=== PATIENT | female | born 2000 | race Hispanic/Latino ===

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

== ENCOUNTER 2019-01-06 22:18 | Emergency (ER) | payer MEDICAID ==
--- NOTE | 2019-01-06 22:25 | Event Note ---
ED Screening Note Date of service: 01/06/19 Time: 22:24 ED Screening Note: 18 y/o female comes in for left ankle injury this evening. LMP 12/26/18. Pain 12/23. This initial assessment/diagnostic orders/clinical plan/treatment(s) is/are subject to change based on patients health status, clinical progression and re- assessment by fellow clinical providers in the ED. Further treatment and workup at subsequent clinical providers discretion. Patient/guardian urged not to elope from the ED as their condition may be serious if not clinically assessed and managed. Initial orders include:
[2019-01-06] MEDS ORDERED: MARCAINE 0.25% INFILTRATI ONE ×2 (22:53→22:59)
[2019-01-06] MEDS ORDERED: NORCO 5/325 PO ONE (22:54)
--- NOTE | 2019-01-06 23:03 | Emergency Department Report ---
ED Lower Extremity HPI - General Chief Complaint: Extremity Injury, Lower Stated Complaint: LT ANKLE PAIN Time Seen by Provider: 01/06/19 22:21 Source: patient Mode of arrival: Ambulatory Limitations: No Limitations - History of Present Illness Initial Comments: pt is a 18-year-old white female presents for left ankle pain and deformity status post states she was walking on concrete H slipped and fell twisting her left ankle now with pain in the family unable to bear weight there is tingling and numbness 7/10 exacerbated by movement attempted weight bearing relieved by off lorenzo with the MD Complaint: leg injury Onset/Timin -: hour(s) Injury: Ankle: Left (L) Place: street/outdoors Severity: moderate Severity scale (0 -10): 5 Improves With: nothing Worsens With: weight bearing, movement (female is usually so place), palpation Context: fall Associated Symptoms: snap/pop sensation, swelling, numbness, tingling, unable to bear weight - Related Data Previous Rx's Medication Instructions Recorded Last Taken Type DOXYCYCLINE Hyclate [Vibramycin 100 mg PO Q12HR #20 capsule 12/15/18 Unknown Rx CAP] Naproxen [Naprosyn] 500 mg PO Q12H #20 tablet 12/15/18 Unknown Rx Ondansetron [Zofran Odt] 4 mg PO Q8HR #15 tab.rapdis 12/15/18 Unknown Rx metroNIDAZOLE [Flagyl] 500 mg PO Q12HR #20 tab 12/15/18 Unknown Rx traMADol [Ultram] 50 mg PO Q6HR PRN #12 tablet 12/15/18 Unknown Rx HYDROcodone/APAP 5-325 [[place] 1 each PO Q6HR PRN #12 tablet 01/06/19 Unknown Rx 5-325 mg TAB] Allergies Allergy/AdvReac Type Severity Reaction Status Date / Time No Known Allergies Allergy Verified 12/15/18 05:13 ED Review of Systems ROS: Stated complaint: LT ANKLE PAIN Other details as noted in HPI Constitutional: denies: chills, fever Eyes: denies: eye pain, eye discharge, vision change ENT: denies: ear pain, throat pain Respiratory: denies: cough, shortness of breath, wheezing Cardiovascular: denies: chest pain, palpitations Endocrine: no symptoms reported Gastrointestinal: denies: abdominal pain, nausea, diarrhea Genitourinary: denies: urgency, dysuria, discharge Musculoskeletal: joint swelling, myalgia, other (left lateral ankle pain swelling ). denies: back pain, arthralgia Skin: denies: rash, lesions Neurological: denies: headache, weakness, numbness, paresthesias, confusion, abnormal gait, vertigo Psychiatric: denies: anxiety, depression Hematological/Lymphatic: denies: easy bleeding, easy bruising ED Past Medical Hx - Past Medical History Previous Medical History?: No - Surgical History Past Surgical History?: Yes Additional Surgical History: [place] tooth - Social History Smoking Status: Current Every Day Smoker Substance Use Type: None - Medications Home Medications: Home Medications Medication Instructions Recorded Confirmed Last Taken Type DOXYCYCLINE Hyclate [Vibramycin 100 mg PO Q12HR #20 capsule 12/15/18 Unknown Rx CAP] Naproxen [Naprosyn] 500 mg PO Q12H #20 tablet 12/15/18 Unknown Rx Ondansetron [Zofran Odt] 4 mg PO Q8HR #15 tab.rapdis 12/15/18 Unknown Rx metroNIDAZOLE [Flagyl] 500 mg PO Q12HR #20 tab 12/15/18 Unknown Rx traMADol [Ultram] 50 mg PO Q6HR PRN #12 tablet 12/15/18 Unknown Rx HYDROcodone/APAP 5-325 [[place] 1 each PO Q6HR PRN #12 tablet 01/06/19 Unknown Rx 5-325 mg TAB] ED Physical Exam - General Limitations: No Limitations General appearance: alert, in no apparent distress - Head Head exam: Present: atraumatic, normocephalic - Eye Eye exam: Present: normal appearance, PERRL, EOMI Pupils: Present: normal accommodation - ENT ENT exam: Present: normal orophraynx, mucous membranes moist, TM's normal bilaterally, normal external ear exam - Neck Neck exam: Present: normal inspection, full ROM. Absent: tenderness, lymphadenopathy, thyromegaly - Respiratory Respiratory exam: Present: normal lung sounds bilaterally. Absent: respiratory distress, wheezes, stridor, chest wall tenderness - Cardiovascular Cardiovascular Exam: Present: regular rate, normal rhythm, normal heart sounds. Absent: systolic murmur, diastolic murmur, rubs, gallop - GI/Abdominal GI/Abdominal exam: Present: soft, normal bowel sounds. Absent: distended, tenderness, bruit, hernia - Rectal Rectal exam: Present: deferred - Extremities Exam Extremities exam: Present: tenderness, normal capillary refill, joint swelling. Absent: pedal edema, calf tenderness - Expanded Lower Extremity Exam Left Ankle exam: Present: tenderness, swelling, deformity. Absent: anterior draw sign Foot/Toe exam: Present: full ROM. Absent: tenderness, swelling Neuro vascular tendon exam: Absent: pulse deficit, motor deficit, sensory deficit, tendon deficit, foot drop Gait: Positive: unable to bear weight - Back Exam Back exam: Present: normal inspection, full ROM. Absent: tenderness, CVA tenderness (R), CVA tenderness (L), muscle spasm, paraspinal tenderness, vertebral tenderness, rash noted - Neurological Exam Neurological exam: Present: alert, oriented X3, CN II-XII intact, normal gait. Absent: motor sensory deficit, reflexes normal - Psychiatric Psychiatric exam: Present: normal affect, normal mood ED Course Vital Signs 01/06/19 01/06/19 22:23 23:35 Temperature 98.2 F Pulse Rate 89 66 Respiratory 18 20 Rate Blood Pressure 116/70 Blood Pressure 119/67 [Right] O2 Sat by Pulse 98 100 Oximetry - Procedure Description Procedures done: left ankle nerve block via marcain .25% per ed attending, ankle manually reduced sean short leg splint placed distal pulses intact rom improved pt tolerated procedure with minmal distress. ED Lower Extremity MDM - Radiology Data Radiology results: report reviewed, image reviewed Ordering Physician: PORSCHE BECKHAM Date of Service: 01/06/19 Procedure(s): XR ankle 3+V LT Accession Number(s): [id number] cc: PORSCHE BECKHAM Fluoro Time In Minutes: LEFT ANKLE 3 VIEWS INDICATION / CLINICAL INFORMATION: Left ankle injury. COMPARISON: None available. FINDINGS: BONES and JOINT(S): No acute fracture or subluxation. No significant arthritis. SOFT TISSUES: Moderate edema is seen anteriorly and laterally. ADDITIONAL FINDINGS: None. IMPRESSION: Moderate left ankle edema without an acute osseous abnormality. Signer Name: Thom Braswell MD Signed: 01/06/2019 10:57 PM Workstation Name: [id number] Transcribed By: [place] Dictated By: Thom Braswell MD Electronically Authenticated By: Thom Braswell MD Signed Date/Time: 01/06/19 8167 DD/ 56 TD/TT: - Medical Decision Making deformity reduced , splint applied , distal pulses intact rom improved, pt will follow up with orthopedics in 2 days , pt demonstrates safe use of crutches pt verbalized agreement and understanding of discharge plan. pt dc'd to home in stable condition at this time. Critical care attestation.: If time is entered above; I have spent that time in minutes in the direct care of this critically ill patient, excluding procedure time. ED Disposition Clinical Impression: Ankle sprain Qualifiers: Encounter type: initial encounter Involved ligament of ankle: unspecified ligament Laterality: left Qualified Code(s): S93.402A - Sprain of unspecified ligament of left ankle, initial encounter Disposition: DC- TO HOME OR SELFCARE Is pt being admited?: No Does the pt Need Aspirin: No Condition: Stable Instructions: Ankle Sprain (ED), Ankle Exercises (GEN) Prescriptions: HYDROcodone/APAP 5-325 [[place] 5-325 mg TAB] 1 each PO Q6HR PRN #12 tablet PRN Reason: Pain Referrals: CHATA ENGLAND MD [Staff Physician] - 3-5 Days Forms: Work/School Release Form(ED) Time of Disposition: 23:50
--- NOTE | 2019-01-06 23:25 | Event Note ---
Date of service: 01/06/19 Face to Face: For this encounter I have reviewed the PA/BROOMCORN SEEDER documentation, treatment plan, medical decision making, and I had face to face time with this patient. Clinically the patient has a dislocated left ankle. Ankle is rotated inward with a great deal of swelling at the lateral malleolus. After performing a Seral ankle block patient did have good anesthesia. Ankle was relocated manually and the patient had improved function with moving her toes and had improved range of motion to the ankle. Splint was applied by myself and Mr. Staley.
[2019-01-06 23:36] VITALS: BP 119/67
== END 2019-01-07 00:04 | disposition home or self-care (01) ==
LOC: ED 22:18
DX: S93.402A Sprain of unspecified ligament of left ankle, initial encounter (principal); F17.200 Nicotine dependence, unspecified, uncomplicated; W01.0XXA Fall on same level from slipping, tripping and stumbling without subsequent striking against object, initial encounter; Y93.89 Activity, other specified; Y92.89 Other specified places as the place of occurrence of the external cause; Y99.8 Other external cause status

== ENCOUNTER 2019-03-04 14:38 | Emergency (ER) | payer MEDICAID ==
--- NOTE | 2019-03-04 14:51 | Event Note ---
ED Screening Note Date of service: 03/04/19 Time: 14:47 ED Screening Note: This is a 18 y.o. F. that presents to the ER with weakness for 2 days. Patient states she took ecstasy Sharan night and sick every since. Reports 4 unwitnessed syncopal episodes without injury. This initial assessment/diagnostic orders/clinical plan/treatment(s) is/are subject to change based on patients health status, clinical progression and re- assessment by fellow clinical providers in the ED. Further treatment and workup at subsequent clinical providers discretion. Patient/guardian urged not to elope from the ED as their condition may be serious if not clinically assessed and managed. Initial orders include: Labs
[2019-03-04 15:18] LABS: Basophils % (Auto) 0.4 % (0.0-1.8); Eosinophils % (Auto) 0.3 % (0.0-4.3); Hematocrit 38.8 % (30.3-42.9); Hemoglobin 13.3 gm/dl (10.1-14.3); Lymphocytes # (Auto) 1.5 K/mm3 (1.2-5.4); Lymphocytes % (Auto) 16.8 % (13.4-35.0); Mean Corpuscular HGB Conc 34 % (30-34); Mean Corpuscular Volume 86 fl (79-97); Monocytes # (Auto) 0.6 K/mm3 (0.0-0.8); Monocytes % (Auto) 7.1 % (0.0-7.3); Platelet Count 388 K/mm3 (140-440); Red Blood Count 4.54 M/mm3 (3.65-5.03); Red Cell Distribution Width 12.8 % (13.2-15.2)
[2019-03-04 15:20] LABS: Bilirubin,Urine NEG (Negative); Blood,Urine SM (Negative); Color,Urine Yellow (Yellow); Mucus,Urine FEW /HPF; Protein,Urine <15 mg/dL mg/dL (Negative); Urobilinogen,Urine < 2.0 mg/dL (<2.0)
[2019-03-04 15:36] LABS: HCG Qualitative,Urine Negative (Negative)
[2019-03-04 15:41] LABS: Alanine Aminotransferase 18 units/L (7-56); Albumin 4.6 g/dL (3.9-5); BUN/Creatinine Ratio 12; Blood Urea Nitrogen 7 mg/dL (7-17); Calcium 9.2 mg/dL (8.4-10.2); Hemolysis Index 6
[2019-03-04] MEDS ORDERED: NACL 0.9% 1000 ML 1,000 ML IV ONE ×3 (16:45→17:56)
[2019-03-04 17:00] LABS: Amphetamine Screen,Urine PRESUMPTIVE POSITIVE; Cannabinoid Screen,Urine PRESUMPTIVE POSITIVE
[2019-03-04 17:01] LABS: Benzodiazepines Screen,Urine PRESUMPTIVE NEGATIVE; Cocaine Screen,Urine PRESUMPTIVE NEGATIVE; Methadone Screen,Urine PRESUMPTIVE NEGATIVE; Opiate Screen,Urine PRESUMPTIVE NEGATIVE
--- NOTE | 2019-03-04 18:02 | Emergency Department Report ---
ED Syncope HPI - General Chief Complaint: Syncope Stated Complaint: FAINTED Time Seen by Provider: 03/04/19 14:46 Source: patient, family Exam Limitations: no limitations - History of Present Illness Initial Comments: Yumiko is a 18 yo female who presents with weakness and fainting episode for the past 2 days. ON Tuesday, she took Ectasy. On Tuesday, she fainted 4 times. No indication of seizure activity. She denies chest pain. She denies shortness of breath. Timing/Prior Episodes: other (multiple episodes on yesterday) Precipitating Factors: Positive: none Context: other (recent drug use) Loss of Consciousness: brief (seconds) Current Symptoms: back to normal - Related Data Allergies/Adverse Reactions: Allergies No Known Allergies Allergy (Verified 12/15/18 05:13) Home Medications: Ambulatory Orders DOXYCYCLINE Hyclate [Vibramycin CAP] 100 mg PO Q12HR #20 capsule 12/15/18 Naproxen [Naprosyn] 500 mg PO Q12H #20 tablet 12/15/18 Ondansetron [Zofran Odt] 4 mg PO Q8HR #15 tab.rapdis 12/15/18 metroNIDAZOLE [Flagyl] 500 mg PO Q12HR #20 tab 12/15/18 traMADol [Ultram] 50 mg PO Q6HR PRN #12 tablet 12/15/18 HYDROcodone/APAP 5-325 [[place] 5-325 mg TAB] 1 each PO Q6HR PRN #12 tablet 01/06/19 ED Review of Systems ROS: Stated complaint: FAINTED Other details as noted in HPI Comment: All other systems reviewed and negative Constitutional: malaise. denies: chills, fever Cardiovascular: denies: chest pain Gastrointestinal: denies: abdominal pain, nausea, vomiting Skin: denies: rash, lesions ED Past Medical Hx - Past Medical History Previous Medical History?: No - Surgical History Past Surgical History?: Yes Additional Surgical History: [place] tooth - Social History Smoking Status: Never Smoker Substance Use Type: None - Medications Home Medications: Home Medications Medication Instructions Recorded Confirmed Last Taken Type DOXYCYCLINE Hyclate [Vibramycin 100 mg PO Q12HR #20 capsule 12/15/18 Unknown Rx CAP] Naproxen [Naprosyn] 500 mg PO Q12H #20 tablet 12/15/18 Unknown Rx Ondansetron [Zofran Odt] 4 mg PO Q8HR #15 tab.rapdis 12/15/18 Unknown Rx metroNIDAZOLE [Flagyl] 500 mg PO Q12HR #20 tab 12/15/18 Unknown Rx traMADol [Ultram] 50 mg PO Q6HR PRN #12 tablet 12/15/18 Unknown Rx HYDROcodone/APAP 5-325 [[place] 1 each PO Q6HR PRN #12 tablet 01/06/19 Unknown Rx 5-325 mg TAB] ED Physical Exam - General Limitations: No Limitations General appearance: alert, in no apparent distress - Head Head exam: Present: atraumatic, normocephalic - Eye Eye exam: Present: normal appearance - ENT ENT exam: Present: mucous membranes moist - Neck Neck exam: Present: normal inspection, full ROM - Respiratory Respiratory exam: Present: normal lung sounds bilaterally. Absent: respiratory distress, wheezes, rales, rhonchi - Cardiovascular Cardiovascular Exam: Present: regular rate, normal rhythm, normal heart sounds. Absent: systolic murmur, diastolic murmur, rubs, gallop - GI/Abdominal GI/Abdominal exam: Present: soft, normal bowel sounds. Absent: distended, tenderness, guarding, rebound - Extremities Exam Extremities exam: Present: normal inspection - Back Exam Back exam: Present: normal inspection - Neurological Exam Neurological exam: Present: alert, oriented X3 - Psychiatric Psychiatric exam: Present: normal affect, normal mood - Skin Skin exam: Present: warm, dry, intact, normal color. Absent: rash ED Course Vital Signs 03/04/19 03/04/19 03/04/19 14:44 17:23 17:30 Temperature 98 F Pulse Rate 95 H Respiratory 18 Rate Blood Pressure 128/98 143/89 O2 Sat by Pulse 100 100 100 Oximetry 03/04/19 03/04/19 18:01 18:31 Temperature Pulse Rate 83 81 Respiratory 24 14 Rate Blood Pressure 129/75 125/73 O2 Sat by Pulse 100 100 Oximetry ED Medical Decision Making - Lab Data Result diagrams: 03/04/19 14:58 03/04/19 14:58 Laboratory Results - last 24 hr 03/04/19 03/04/19 03/04/19 14:58 14:58 16:05 WBC 9.0 RBC 4.54 Hgb 13.3 Hct 38.8 MCV 86 MCH 29 MCHC 34 RDW 12.8 L Plt Count 388 Lymph % (Auto) 16.8 [place] % (Auto) 7.1 Eos % (Auto) 0.3 Baso % (Auto) 0.4 Lymph # 1.5 [place] # 0.6 Eos # 0.0 Baso # 0.0 Seg Neutrophils % 75.4 H Seg Neutrophils # 6.8 Sodium 141 Potassium 3.4 L Chloride 102.1 Carbon Dioxide 23 Anion Gap 19 BUN 7 Creatinine 0.6 L Estimated GFR > 60 BUN/Creatinine Ratio 12 Glucose 88 Calcium 9.2 Total Bilirubin 0.30 AST 24 ALT 18 Alkaline Phosphatase 51 Total Protein 8.2 Albumin 4.6 Albumin/Globulin Ratio 1.3 Urine Color Urine Turbidity Urine pH Ur Specific [place] Urine Protein Urine Glucose (UA) Urine Ketones Urine Blood Urine Nitrite Urine Bilirubin Urine Urobilinogen Ur Leukocyte Esterase Urine WBC (Auto) Urine RBC (Auto) U Epithel Cells (Auto) Urine Mucus Urine HCG, Qual Urine Opiates Screen Presumptive negative Urine Methadone Screen Presumptive negative Ur Barbiturates Screen Presumptive negative Ur Phencyclidine Scrn Presumptive negative Ur Amphetamines Screen Presumptive positive U Benzodiazepines Scrn Presumptive negative Urine Cocaine Screen Presumptive negative U Marijuana (THC) Screen Presumptive positive Drugs of Abuse Note Disclamer 03/04/19 Unknown WBC RBC Hgb Hct MCV MCH MCHC RDW Plt Count Lymph % (Auto) [place] % (Auto) Eos % (Auto) Baso % (Auto) Lymph # [place] # Eos # Baso # Seg Neutrophils % Seg Neutrophils # Sodium Potassium Chloride Carbon Dioxide Anion Gap BUN Creatinine Estimated GFR BUN/Creatinine Ratio Glucose Calcium Total Bilirubin AST ALT Alkaline Phosphatase Total Protein Albumin Albumin/Globulin Ratio Urine Color Yellow Urine Turbidity Clear Urine pH 7.0 Ur Specific [place] 1.010 Urine Protein <15 mg/dl Urine Glucose (UA) Neg Urine Ketones Neg Urine Blood Sm Urine Nitrite Neg Urine Bilirubin Neg Urine Urobilinogen < 2.0 Ur Leukocyte Esterase Tr Urine WBC (Auto) 1.0 Urine RBC (Auto) 2.0 U Epithel Cells (Auto) < 1.0 Urine Mucus Few Urine HCG, Qual Negative Urine Opiates Screen Urine Methadone Screen Ur Barbiturates Screen Ur Phencyclidine Scrn Ur Amphetamines Screen U Benzodiazepines Scrn Urine Cocaine Screen U Marijuana (THC) Screen Drugs of Abuse Note - EKG Data EKG shows normal: sinus rhythm, axis, intervals, QRS complexes, ST-T waves Rate: normal - Medical Decision Making Recurrent syncope with severe orthostasis: IVF provided, VTE/PE ruled out with normal d-dimer. Normal EKG, negative . labs WNL Has been monitored in the ED for 4 hours without arrhythmia detected on monitor. Discharged home with normal vital signs upon discharge. UDS positive for amphetamine and marijuana Critical care attestation.: If time is entered above; I have spent that time in minutes in the direct care of this critically ill patient, excluding procedure time. ED Disposition Clinical Impression: Recurrent syncope, Orthostatic hypotension, Dehydration, Drug abuse Disposition: DC-01 TO HOME OR SELFCARE Is pt being admited?: No Does the pt Need Aspirin: No Condition: Stable Instructions: Syncope (ED), Dehydration (ED), Polysubstance Abuse (ED) Referrals: [facility] [Outside] - 3-5 Days
[2019-03-04 19:49] VITALS: BP 148/121
== END 2019-03-04 19:40 | disposition home or self-care (01) ==
LOC: ED 14:38
DX: E86.0 Dehydration (principal); R55 Syncope and collapse; Z79.899 Other long term (current) drug therapy
CPT/HCPCS: 36415; 80053; 80307; 81001; 81025; 85025; 85379; 93005; 93010; 96360; 96361; 99284; J7030

== ENCOUNTER 2019-04-11 07:33 | Emergency (ER) | payer MEDICAID ==
--- NOTE | 2019-04-11 08:54 | Emergency Department Report ---
ED Headache HPI - General Chief Complaint: Headache Stated Complaint: BAD HEADACHES/FAINTING Time Seen by Provider: 04/11/19 08:06 Source: patient, old records Exam Limitations: no limitations - History of Present Illness Initial Comments: 18 yo comes to ER with a 1 month hx of worsening headache. VSS. no fever. no meningeal signs. no htn. no difficulty with vision or balance. no hx of trauma. She is non ill appearing and ambulatory to ER She reports a syncope event 1 m ago- she did not follow up. Today she comes to due to headache. Has taken OTC meds but they do not help Timing/Duration: increasing, other Quality: throbbing Head Injury Location: global Recent Head Trauma: no recent headache/trauma, frequent headaches Associated Symptoms: denies symptoms Allergies/Adverse Reactions: Allergies No Known Allergies Allergy (Verified 12/15/18 05:13) Home Medications: Ambulatory Orders Ibuprofen [Motrin] 800 mg PO Q8HR PRN #30 tablet 04/11/19 ED Review of Systems ROS: Stated complaint: BAD HEADACHES/FAINTING Other details as noted in HPI Comment: All other systems reviewed and negative ED Past Medical Hx - Past Medical History Previous Medical History?: No - Surgical History Past Surgical History?: Yes Additional Surgical History: [place] tooth - Family History Family history: no significant - Social History Smoking Status: Current Every Day Smoker Substance Use Type: None - Medications Home Medications: Home Medications Medication Instructions Recorded Confirmed Last Taken Type Ibuprofen [Motrin] 800 mg PO Q8HR PRN #30 tablet 04/11/19 Unknown Rx ED Physical Exam - General Limitations: No Limitations General appearance: alert, in no apparent distress - Head Head exam: Present: atraumatic, normocephalic - Eye Eye exam: Present: normal appearance - ENT ENT exam: Present: mucous membranes moist - Neck Neck exam: Present: normal inspection - Respiratory Respiratory exam: Present: normal lung sounds bilaterally. Absent: respiratory distress - Cardiovascular Cardiovascular Exam: Present: regular rate, normal rhythm. Absent: systolic murmur, diastolic murmur, rubs, gallop - GI/Abdominal GI/Abdominal exam: Present: soft, normal bowel sounds - Extremities Exam Extremities exam: Present: normal inspection - Back Exam Back exam: Present: normal inspection - Neurological Exam Neurological exam: Present: alert, oriented X3 - Psychiatric Psychiatric exam: Present: normal affect, normal mood - Skin Skin exam: Present: warm, dry, intact, normal color. Absent: rash ED Course Vital Signs 04/11/19 04/11/19 07:39 10:25 Temperature 98.2 F Pulse Rate 86 57 L Respiratory 16 20 Rate Blood Pressure 133/96 Blood Pressure 126/78 [Right] O2 Sat by Pulse 99 100 Oximetry ED Medical Decision Making - Lab Data Result diagrams: 04/11/19 08:27 04/11/19 08:27 - Radiology Data Radiology results: report reviewed, image reviewed - Medical Decision Making Labs 04/11/19 04/11/19 04/11/19 08:27 08:27 Unknown WBC 5.0 RBC 4.13 Hgb 12.1 Hct 35.7 MCV 87 MCH 29 MCHC 34 RDW 13.5 Plt Count 330 Lymph % (Auto) 32.3 [place] % (Auto) 7.4 H Eos % (Auto) 3.4 Baso % (Auto) 0.8 Lymph # 1.6 [place] # 0.4 Eos # 0.2 Baso # 0.0 Seg Neutrophils % 56.1 Seg Neutrophils # 2.8 Sodium 141 Potassium 4.1 Chloride 102.8 Carbon Dioxide 24 Anion Gap 18 BUN 10 Creatinine 0.7 Estimated GFR > 60 BUN/Creatinine Ratio 14 Glucose 89 Calcium 9.1 Urine Color Yellow Urine Turbidity Clear Urine pH 7.0 Ur Specific [place] 1.012 Urine Protein <15 mg/dl Urine Glucose (UA) Neg Urine Ketones Neg Urine Blood Neg Urine Nitrite Neg Urine Bilirubin Neg Urine Urobilinogen < 2.0 Ur Leukocyte Esterase Neg Urine WBC (Auto) 1.0 Urine RBC (Auto) < 1.0 U Epithel Cells (Auto) 2.0 Urine HCG, Qual Negative Vital Signs 04/11/19 07:39 Temperature 98.2 F Pulse Rate 86 Respiratory 16 Rate Blood Pressure 133/96 O2 Sat by Pulse 99 Oximetry Lab Results 04/11/19 04/11/19 04/11/19 Range/Units 08:27 08:27 Unknown WBC 5.0 (4.5-11.0) K/mm3 RBC 4.13 (3.65-5.03) M/mm3 Hgb 12.1 (10.1-14.3) gm/dl Hct 35.7 (30.3-42.9) % MCV 87 (79-97) fl MCH 29 (28-32) pg MCHC 34 (30-34) % RDW 13.5 (13.2-15.2) % Plt Count 330 (140-440) K/mm3 Lymph % (Auto) 32.3 (13.4-35.0) % [place] % (Auto) 7.4 H (0.0-7.3) % Eos % (Auto) 3.4 (0.0-4.3) % Baso % (Auto) 0.8 (0.0-1.8) % Lymph # 1.6 (1.2-5.4) K/mm3 [place] # 0.4 (0.0-0.8) K/mm3 Eos # 0.2 (0.0-0.4) K/mm3 Baso # 0.0 (0.0-0.1) K/mm3 Seg Neutrophils % 56.1 (40.0-70.0) % Seg Neutrophils # 2.8 (1.8-7.7) K/mm3 Sodium 141 (137-145) mmol/L Potassium 4.1 (3.6-5.0) mmol/L Chloride 102.8 (98-107) mmol/L Carbon Dioxide 24 (22-30) mmol/L Anion Gap 18 mmol/L BUN 10 (7-17) mg/dL Creatinine 0.7 (0.7-1.2) mg/dL Estimated GFR > 60 ml/min BUN/Creatinine Ratio 14 % Glucose 89 (65-100) mg/dL Calcium 9.1 (8.4-10.2) mg/dL Urine Color Yellow (Yellow) Urine Turbidity Clear (Clear) Urine pH 7.0 (5.0-7.0) Ur Specific [place] 1.012 (1.003-1.030) Urine Protein <15 mg/dl (Negative) mg/dL Urine Glucose (UA) Neg (Negative) mg/dL Urine Ketones Neg (Negative) mg/dL Urine Blood Neg (Negative) Urine Nitrite Neg (Negative) Urine Bilirubin Neg (Negative) Urine Urobilinogen < 2.0 (<2.0) mg/dL Ur Leukocyte Esterase Neg (Negative) Urine WBC (Auto) 1.0 (0.0-6.0) /HPF Urine RBC (Auto) < 1.0 (0.0-6.0) /HPF U Epithel Cells (Auto) 2.0 (0-13.0) /HPF Urine HCG, Qual Negative (Negative) Vital Signs 04/11/19 04/11/19 07:39 10:25 Temperature 98.2 F Pulse Rate 86 57 L Respiratory 16 20 Rate Blood Pressure 133/96 Blood Pressure 126/78 [Right] O2 Sat by Pulse 99 100 Oximetry exam WNL with no focal neuro deficit labs noted ua noted preg neg CT noted with NAP medicated for pain in ER with some relief. pt being dc home with dc plan of care including neuro follow up. I've also given her a pcp referral. she verbalizes understanding of plan of care. ambulatory and taking po. - Differential Diagnosis ro intracranial process Critical care attestation.: If time is entered above; I have spent that time in minutes in the direct care of this critically ill patient, excluding procedure time. ED Disposition Clinical Impression: Headache Disposition: DC-01 TO HOME OR SELFCARE Is pt being admited?: No Does the pt Need Aspirin: No Condition: Stable Instructions: Acute Headache (ED) Additional Instructions: LABS ALL NORMAL CT NORMAL STAY WELL HYDRATED WITH WATER AVOID ALCOHOL DIET AND ACTIVITY TOLERATED FOLLOW UP WITH PCP AND NEURO MD NEXT WEEK REFERRALS BELOW MED ORDERED FOR PAIN Prescriptions: Ibuprofen [Motrin] 800 mg PO Q8HR PRN #30 tablet PRN Reason: Pain, Moderate (4-6) Referrals: PRIMARY CAREMD [Primary Care Provider] - 3-5 Days THERON OVALLE MD [Staff Physician] - 3-5 Days AYAZ BENITEZ MD [Referring] - 3-5 Days Forms: Work/School Release Form(ED) Time of Disposition: 10:03
[2019-04-11 09:01] LABS: Basophils % (Auto) 0.8 % (0.0-1.8); Eosinophils # (Auto) 0.2 K/mm3 (0.0-0.4); Eosinophils % (Auto) 3.4 % (0.0-4.3); Hematocrit 35.7 % (30.3-42.9); Hemoglobin 12.1 gm/dl (10.1-14.3); Lymphocytes # (Auto) 1.6 K/mm3 (1.2-5.4); Lymphocytes % (Auto) 32.3 % (13.4-35.0); Mean Corpuscular HGB Conc 34 % (30-34); Mean Corpuscular Volume 87 fl (79-97); Monocytes # (Auto) 0.4 K/mm3 (0.0-0.8); Monocytes % (Auto) 7.4 % (0.0-7.3); Platelet Count 330 K/mm3 (140-440); Red Blood Count 4.13 M/mm3 (3.65-5.03); Red Cell Distribution Width 13.5 % (13.2-15.2)
[2019-04-11 09:13] LABS: Bilirubin,Urine NEG (Negative); Blood,Urine NEG (Negative); Color,Urine Yellow (Yellow); Protein,Urine <15 mg/dL mg/dL (Negative); RBC,Urine < 1.0 /HPF (0.0-6.0); Urobilinogen,Urine < 2.0 mg/dL (<2.0)
[2019-04-11 09:16] LABS: BUN/Creatinine Ratio 14; Blood Urea Nitrogen 10 mg/dL (7-17); Calcium 9.1 mg/dL (8.4-10.2); Hemolysis Index 8
[2019-04-11 09:16] LABS: HCG Qualitative,Urine Negative (Negative)
[2019-04-11] MEDS ORDERED: KETOROLAC 60 MG/2 ML INJ IM ONE (09:39)
[2019-04-11] MEDS ORDERED: predniSONE 20 MG TAB PO ONE (09:39)
--- NOTE | 2019-04-11 09:58 | Cat Scan Report ---
CT HEAD WITHOUT CONTRAST INDICATION / CLINICAL INFORMATION: Syncope, on and off headaches for one month. TECHNIQUE: Axial imaging performed from the skull apex through the skull base without the use of cont rast. Sagittal and coronal reformatted images. All CT scans at this location are performed using CT dose reduction for ALARA by means of automated exposure control. COMPARISON: None available. FINDINGS: CEREBRAL PARENCHYMA: No significant abnormality. No acute territorial infarct. HEMORRHAGE: None. EXTRA-AXIAL SPACES: Normal in size and morphology for the patient's age. VENTRICULAR SYSTEM: Normal in size and morphology for the patient's age. MIDLINE SHIFT OR HERNIATION: None. CEREBELLUM / BRAINSTEM: No significant abnormality. CALVARIUM: No significant abnormality. ORBITS: Normal as visualized. PARANASAL SINUSES / MASTOID AIR CELLS: Normal as visualized. SOFT TISSUES of HEAD: No significant abnormality. ADDITIONAL FINDINGS: None. IMPRESSION: Cranial CT scan within normal limits. Signer Name: Lino Perkins Jr, MD Signed: 04/11/2019 9:53 AM Workstation Name: [id number]
[2019-04-11 10:26] VITALS: BP 126/78
== END 2019-04-11 10:25 | disposition home or self-care (01) ==
LOC: ED 07:33
DX: R51 Headache (principal); F17.200 Nicotine dependence, unspecified, uncomplicated; Z79.1 Long term (current) use of non-steroidal anti-inflammatories (NSAID)
CPT/HCPCS: 36415; 70450; 80048; 81001; 81025; 85025; 96372; 99284; J1885; J7512

== ENCOUNTER 2019-06-17 18:22 | Emergency (ER) | payer MEDICAID ==
[2019-06-17 18:39] VITALS: BP 127/73
--- NOTE | 2019-06-17 19:16 | XRay Report ---
Right shoulder 3 views INDICATION: Right shoulder pain. IMPRESSION: No fracture or subluxation of the right shoulder is identified. Signer Name: Monster Hernandez MD Signed: 06/17/2019 7:11 PM Workstation Name: [id number]
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
== END 2019-06-17 20:38 | disposition left against medical advice (07) ==
LOC: ED 18:22
DX: M79.10 Myalgia, unspecified site (principal); Y04.8XXA Assault by other bodily force, initial encounter; Y93.89 Activity, other specified; Y92.89 Other specified places as the place of occurrence of the external cause; Y99.8 Other external cause status

== ENCOUNTER 2019-06-18 00:25 | Emergency (ER) | payer MEDICAID ==
[2019-06-18 01:06] VITALS: BP 108/51
== END 2019-06-18 08:49 | disposition left against medical advice (07) ==
LOC: ED 00:25
DX: M25.511 Pain in right shoulder (principal); Z53.21 Procedure and treatment not carried out due to patient leaving prior to being seen by health care provider

== ENCOUNTER 2019-10-13 17:32 | Emergency (ER) | payer SELFPAY ==
--- NOTE | 2019-10-13 20:16 | Emergency Department Report ---
HPI - General Chief Complaint: Back Pain/Injury Time Seen by Provider: 10/13/19 19:53 - HPI HPI: 19-year-old female presents to the emergency department with a complaint of a 3- day history of cramping pelvic pain and low back pain. She says she is about 16 to 17 weeks . She denies any vaginal bleeding, dysuria but has been having some greenish vaginal discharge. She denies any fever, nausea, vomiting. She just moved here from [place] and therefore does not have any local [employer]. She tried some Tylenol for her symptoms without any relief. ED Past Medical Hx - Past Medical History Previous Medical History?: No - Surgical History Additional Surgical History: [place] tooth - Social History Smoking Status: Never Smoker Substance Use Type: None - Medications Home Medications: Home Medications Medication Instructions Recorded Confirmed Last Taken Type Ibuprofen [Motrin] 800 mg PO Q8HR PRN #30 tablet 04/11/19 Unknown Rx Vit-Fe Fumar-FA [ 1 tab PO QDAY #30 tablet 10/14/19 Unknown Rx Vitamin] metroNIDAZOLE [Flagyl TAB] 250 mg PO Q8HR #21 tablet 10/14/19 Unknown Rx ED Review of Systems ROS: Stated complaint: BACK PAIN, 16WKS PREG Other details as noted in HPI Comment: All other systems reviewed and negative Constitutional: denies: chills, fever Respiratory: denies: shortness of breath Cardiovascular: denies: chest pain Gastrointestinal: denies: nausea, vomiting Genitourinary: discharge. denies: dysuria Musculoskeletal: back pain. denies: arthralgia Skin: denies: rash, lesions Neurological: denies: headache, weakness Physical Exam - Physical Exam Vital Signs: Vital Signs 10/13/19 17:35 Temperature 98.3 F Pulse Rate 87 Respiratory 16 Rate Blood Pressure 132/66 [Right] O2 Sat by Pulse 99 Oximetry Physical Exam: GENERAL: The patient is well-developed well-nourished. HENT: Normocephalic. Atraumatic. Patient has moist mucous membranes. EYES: Extraocular motions are intact. NECK: Supple. Trachea is midline. CHEST/LUNGS: Clear to auscultation. There is no respiratory distress noted. HEART/CARDIOVASCULAR: Regular. There is no tachycardia. ABDOMEN: Abdomen is soft. There is no abdominal tenderness to palpation. Patient has normal bowel sounds. SKIN: Skin is warm and dry. NEURO: The patient is awake, alert, and oriented. The patient is cooperative. Normal speech. MUSCULOSKELETAL: There is no tenderness or deformity. There is no limitation range of motion. : There is a moderate amount of thin yellow discharge seen in the vagina. No obvious vaginal or labial lesions. BACK: No midline thoracic lumbar tenderness to palpation, step-off or deformity. There is some reproducible bilateral lumbar paraspinal tenderness to palpation. ED Course Vital Signs 10/13/19 17:35 Temperature 98.3 F Pulse Rate 87 Respiratory 16 Rate Blood Pressure 132/66 [Right] O2 Sat by Pulse 99 Oximetry - Reevaluation(s) Reevaluation #1: 10/13/19 21:11 Pelvic examination was done with nurse Carbone at bedside. ED Medical Decision Making - Lab Data Result diagrams: 10/13/19 20:08 10/13/19 20:08 - Radiology Data Radiology results: report reviewed ULTRASOUND OBSTETRIC Indication: preg, pelvic pain Findings: There is a single intrauterine . BPD = 3.6 cm = 17 weeks, 0 day(s). Head circumference = 13.6 cm = 17 weeks, 0 day(s). Abdominal circumference = 11.3 cm = 17 weeks, 1 day(s). Femur length = 2.4 cm = 17 weeks, 3 day(s). Overall estimated sonographic age = 17 weeks, 1 day(s). heart rate is 153 beats per minute. Cervical length of 3.3 cm position is cephalic. Cervix appears closed. movement is present. Placenta is anterior and grade 0 . Amniotic fluid volume appears normal. Maternal adnexa appear normal. Impression: 1. Single living intrauterine with estimated sonographic age of 17 weeks, 1 day(s). 2. No sonographic abnormality identified. - Medical Decision Making This patient presents to the emergency department with a complaint of some lower abdominal and/or pelvic cramping pain, as well as some low back pain, over the past 3 days. The patient is about 16 weeks . Patient had a false negative qualitative serum test. The quantitative just came back at 8800. A /obstetrical ultrasound was done that shows a live intrauterine at about 17 weeks without any sonographic abnormality identified. A pelvic exam was done and a wet prep was sent that came back positive for bacterial vaginosis. Patient will be placed on Flagyl/metronidazole. Urinalysis was clean for any urinary tract infection. Patient does not have any midline back pain and her discomfort appears to be in the paraspinal/muscular region. Patient was seen ambulatory in the emergency department both appears and feels stable. Vital signs been stable throughout her ED course. The patient will be discharged home to follow-up with a primary care physician and [employer]. She will return to the ER with any worsening of her symptoms or any acute distress. Critical Care Time: No Critical care attestation.: If time is entered above; I have spent that time in minutes in the direct care of this critically ill patient, excluding procedure time. ED Disposition Clinical Impression: Bacterial vaginosis Qualifiers: Weeks of gestation: 17 weeks Qualified Code(s): Z3A.17 - 17 weeks gestation of Disposition: DC- TO HOME OR SELFCARE Is pt being admited?: No Condition: Stable Instructions: Metronidazole (By mouth), (ED), Bacterial Vaginosis (ED) Additional Instructions: Please follow-up with an [employer] in the next few days. Return to the emergency department with any worsening of your symptoms or any acute distress. Prescriptions: metroNIDAZOLE [Flagyl TAB] 250 mg PO Q8HR #21 tablet Vit-Fe Fumar-FA [ Vitamin] 1 tab PO QDAY #30 tablet Referrals: [facility] [Provider Group] - 3-5 Days [facility] [Provider Group] - 3-5 Days Time of Disposition: 00:23
[2019-10-13 20:17] LABS: Basophils % (Auto) 0.5 % (0.0-1.8); Eosinophils # (Auto) 0.1 K/mm3 (0.0-0.4); Hematocrit 33.7 % (30.3-42.9); Hemoglobin 11.6 gm/dl (10.1-14.3); Lymphocytes # (Auto) 2.2 K/mm3 (1.2-5.4); Lymphocytes % (Auto) 29.4 % (13.4-35.0); Mean Corpuscular HGB Conc 35 % (30-34); Mean Corpuscular Volume 87 fl (79-97); Monocytes # (Auto) 0.4 K/mm3 (0.0-0.8); Monocytes % (Auto) 5.9 % (0.0-7.3); Platelet Count 290 K/mm3 (140-440); Red Blood Count 3.89 M/mm3 (3.65-5.03); Red Cell Distribution Width 13.4 % (13.2-15.2)
[2019-10-13 20:40] LABS: Alanine Aminotransferase 12 units/L (7-56); Albumin 4.1 g/dL (3.9-5); BUN/Creatinine Ratio 23; Blood Urea Nitrogen 9 mg/dL (7-17); Calcium 9.3 mg/dL (8.4-10.2); Hemolysis Index 9
[2019-10-13 22:49] LABS: Bilirubin,Urine NEG (Negative); Blood,Urine NEG (Negative); Color,Urine Colorless (Yellow); Protein,Urine <15 mg/dL mg/dL (Negative); Urobilinogen,Urine < 2.0 mg/dL (<2.0); WBC,Urine < 1.0 /HPF (0.0-6.0)
--- NOTE | 2019-10-14 00:11 | Ultrasound Report ---
ULTRASOUND OBSTETRIC Indication: preg, pelvic pain Findings: There is a single intrauterine . BPD = 3.6 cm = 17 weeks, 0 day(s). Head circumference = 13.6 cm = 17 weeks, 0 day(s). Abdominal circumference = 11.3 cm = 17 weeks, 1 day(s). Femur length = 2.4 cm = 17 weeks, 3 day(s). Overall estimated sonographic age = 17 weeks, 1 day(s). heart rate is 153 beats per minute. Cervical length of 3.3 cm position is cephalic. Cervix appears closed. movement is present. Placenta is anterior and grade 0 . Amniotic fluid volume appears normal. Maternal adnexa appear normal. Impression: 1. Single living intrauterine with estimated sonographic age of 17 weeks, 1 day(s). 2. No sonographic abnormality identified. Signer Name: Monster Hernandez MD Signed: 10/14/2019 12:07 AM Workstation Name: [id number]
[2019-10-14 00:55] VITALS: BP 113/65
== END 2019-10-14 00:56 | disposition home or self-care (01) ==
LOC: ED 17:32
DX: O26.892 Other specified pregnancy related conditions, second trimester (principal); N76.0 Acute vaginitis; B96.89 Other specified bacterial agents as the cause of diseases classified elsewhere; Z3A.17 17 weeks gestation of pregnancy
CPT/HCPCS: 36415; 76805; 80053; 81001; 84702; 84703; 85025; 87210

== ENCOUNTER 2019-12-15 02:24 | Outpatient (CLI) | payer MEDICAID ==
[2019-12-15 02:58] VITALS: BP 102/56
[2019-12-15] MEDS ORDERED: LACTATED RINGERS 1,000 ML IV ONE (03:43)
== END 2019-12-15 08:18 | disposition home or self-care (01) ==
LOC: TRG 02:24 → APU 02:39 → TRG 08:18
PROVIDERS: ATTEND Obstetrics & Gynecology
DX: O26.892 Other specified pregnancy related conditions, second trimester (principal); R10.9 Unspecified abdominal pain; Z3A.25 25 weeks gestation of pregnancy
CPT/HCPCS: 85460

== ENCOUNTER 2020-01-30 15:29 | Outpatient (CLI) | payer MEDICAID ==
[2020-01-30 15:52] VITALS: BP 117/71
[2020-01-30 16:58] LABS: Bacteria,Urine 1+ /HPF (Negative); Bilirubin,Urine NEG (Negative); Blood,Urine NEG (Negative); Color,Urine Yellow (Yellow); Mucus,Urine 2+ /HPF; Protein,Urine <15 mg/dL mg/dL (Negative); Urobilinogen,Urine < 2.0 mg/dL (<2.0)
[2020-01-30] MEDS ORDERED: LACTATED RINGERS 1,000 ML IV SCH (17:00)
== END 2020-01-30 17:31 | disposition home or self-care (01) ==
LOC: APU 15:29 → TRG 15:29
PROVIDERS: ATTEND Obstetrics & Gynecology
DX: O36.8130 Decreased fetal movements, third trimester, not applicable or unspecified (principal); Z3A.31 31 weeks gestation of pregnancy
CPT/HCPCS: 59025; 81001

== ENCOUNTER 2020-02-29 18:17 | Outpatient (CLI) | payer MEDICAID ==
[2020-02-29 18:46] VITALS: BP 118/70
== END 2020-02-29 19:36 | disposition home or self-care (01) ==
LOC: TRG 18:17 → APU 18:19 → TRG 19:36
PROVIDERS: ATTEND Obstetrics & Gynecology
DX: O46.8X3 Other antepartum hemorrhage, third trimester (principal); Z3A.36 36 weeks gestation of pregnancy
CPT/HCPCS: 59025

== ENCOUNTER 2020-12-24 21:08 | Emergency (ER) | payer MEDICAID | END 2020-12-24 23:23 | disposition left against medical advice (07) | LOC: ED 21:08 | DX: R21 Rash and other nonspecific skin eruption (principal); Z53.21 Procedure and treatment not carried out due to patient leaving prior to being seen by health care provider ==